=== PATIENT | male | born 1955 | race Caucasian/White ===

== ENCOUNTER 2017-01-06 06:29 | Day surgery (SDC) | payer OTHER ==
[~2017-01-06] VITALS: Ht 177.8 cm; Wt 108.7 kg
[~2017-01-06 06:29] MED LIST: ASPI81TA82 PO; CHOL1CAP6 PO; CIAL5TAB PO; DEXTLIQ PO; ROSU40 PO
[2017-01-06] MEDS ORDERED: NS 1000P @30 MLS/HR (KVO) IV SCH (06:45)
[2017-01-06] MEDS ORDERED: AMLO5TAB2 PO (06:59)
[2017-01-06] MEDS ORDERED: VITA10002 PO (06:59)
[2017-01-06] MEDS ORDERED: OMEGCAP PO (06:59)
[2017-01-06] MEDS ORDERED: ERGO2000 PO (06:59)
[2017-01-06] MEDS ORDERED: CIAL20TA PO (06:59)
[2017-01-06] MEDS ORDERED: LACTCAP8 PO (06:59)
[2017-01-06 07:29] VITALS: BP 165/108; PULSE 66; RESP 18; TEMP 97.9; O2SAT 97
[2017-01-06] MEDS ORDERED: HEPARIN-NS/PF INJ 500 ML ONE (08:42)
[2017-01-06] MEDS ORDERED: NITROGLYCERIN INJ 5 ML ONE (08:42)
[2017-01-06] MEDS ORDERED: MIDAZOLAM HCL 2 MG/2 ML VIAL ONE (08:43)
[2017-01-06] MEDS ORDERED: HEPARIN SODIUM - IV 10,000 UNITS/10 ML VIAL ONE (08:43)
[2017-01-06] MEDS ORDERED: MISC INFORMATION XX ONE (09:15)
--- NOTE | 2017-01-06 09:18 | CATHPROC ---
[employer] HIS Report Study Information Study Number Admission Scheduled Start Study Start [id number] Jan 06 2017 6:29AM 01/06/2017 Jan 06 2017 8:29AM [place] [facility] Cardiac Catheterization Admit Source Facility Department Other [facility] - Demurrage Clerk Physician and Clinical Staff Initial Anthony Burch Florist Manager Alessandro Varela,RN Recorder Bruce Wagner,RT(R) Scrub Giancarlo Haines RCIS(BS) Procedures Performed Procedure Location (Site) Vessel Name Coronary Angiograms LCA Left Coronary Coronary Angiograms RCA Right Coronary Equipment Time Finance Business Partner Description Size Mfg Part Number Used/Scraped TRANSDUCER, TRUWAVE [id number] 08:55 [employer]OTTON PIERSON * Used W/STOCKCOCK *[id number] *[id number] [id number] *[id number] PIGTAIL ANG. 145 INFINITI 534-652S CATHETER *[id number] 08:55 [employer] INDUSTRIES PACK, CCL CUSTOM * Used *[id number] 08:55 [employer] SUPPORT, ARTERIAL ADULT 61068 Used [id number] 08:55 [employer] PACER PEN, SKIN DUAL W/ RULER * Used *[id number] BAND, RADIAL COMPRESSION TR [id number] 09:11 [email or web address] [email or web address] 29CM Used LARGE 29 *[id number] SHEATH, FR6 RADIAL PRELUDE 08:55 [employer] FR 6 [id number] Used EASE 11CM [id number] 08:55 [employer] WIRE, EXCHANGE 260CM 3MMJ 260CM Used *[id number] 08:55 [employer] OMNIPAQUE, 350 MG, 150ML 150ML [id number] Used [id number] 08:55 [employer],WARM AIR CCL * Used *[id number] History: Allergies Allergy Reaction No Known Allergies Codeine Toprol Xl History: Risk Factors Family History of Hypertension Dyslipidemia Previous NC Previous Heart Failure Premature CAD Yes No No No No Prior Valve Prior PCI Prior CABG Surgery No No No Cerebrovascular Peripheral Artery Chronic Lung On Dialysis Diabetes Disease Disease Disease No No No No No History: Stress Tests Stress or Imaging Studies Performed Yes Standard Exercise Stress Test No Stress Echo No Stress Test SPECT Stress Test SPECT Result Stress Test SPECT Ischemia Risk/Extent Yes Positive Intermediate Stress Test CMR Yes Cardiac CTA Coronary Calcium Score No No History: Other Current Smoker No Labs Hgb (g/dl) Hct (%) RBC (MIL/MM3) WBC (l/cumm) Platelets (thousands) 11.60-17.00 35.00-51.00 4.00-5.90 4.00-11.00 150.00-450.00 13.4 39.6 4.2 5.9 264 Glucose (mg/dl) BUN (mg/dl) Creatinine (mg/dl) BUN:Creatinine (1:x) 74.00-106.00 7.00-18.00 0.50-1.30 10.00-20.00 86 16 1.0 16 Na (meq/l) K (meq/l) 136.00-145.00 3.50-5.10 141 4.4 PT (sec) INR (PTT:PT) 9.80-11.60 0.90-1.10 9.7 1 CPK-MB (ng/ML) 0.50-3.60 Not Drawn Medication Medication Total Dose (Bolus/Oral) Medication Total Dosage/Unit 1% XYLOCAINE 5 mL FENTANYL 50 mcg HEPARIN 5000 units NTG (IC) 200 mcg VERSED 2 mg Medications (Bolus/Oral) Medication Time Given Dosage/Unit Administered By Reason VERSED 01/06/2017 8:52:59 AM 2 mg Alessandro Varela 2 mg VERSED given in lab by Alessandro Varela RN in Left Antecubital via Peripheral IV. Ordered by Anthony Mixon. FENTANYL 01/06/2017 8:53:23 AM 50 mcg Alessandro Varela 50 mcg FENTANYL given in lab by Alessandro Varela RN in Left Antecubital via Peripheral IV. Ordered by Anthony Anderson. 1% XYLOCAINE 01/06/2017 8:53:36 AM 5 mL Anthony Mixon Patient arrived on 5 mL 1% XYLOCAINE given by Anthony Mixon in Right Radial via Subcutaneous. Ordere d by Anthony Mixon. NTG (IC) 01/06/2017 8:56:11 AM 200 mcg Anthony Mixon 200 mcg NTG (IC) given in lab by Anthony Mixon in Right Radial via Intra-arterial. Ordered by Anthony Mixon. HEPARIN 01/06/2017 8:56:45 AM 5000 units Alessandro Varela 5000 units HEPARIN given in lab by Alessandro Varela RN in Left Antecubital via Peripheral IV. Ordered b y Anthony Mixon. Medication (Drip) Medication Time Given Dosage/Unit Concentration/Unit Diluent (ml) Solution IV Solutions 01/06/2017 8:45:41 AM 0 mL (IV) 500 NaCl .9 Patient arrived on IV Solutions given by Anthony Mixon in Left Antecubital via Peripheral IV. Pump/D rip Flow = 20 ml/hr using NaCl .9. Ordered by Anthony Mixon. Initial Case Assessment Cardiovascular HR Rhythm NIBP Chest Pain 55 sr 185/109 0 Edema Present Skin color Skin None Normal Warm Dry Circulatory - Right Pulses Dorsalis Pedis Femoral Radial 2 2 2 Scale (0,1,2,3,4,d) Scale (0,1,2,3,4,d) Neurological State Oriented to time-place- Alert Moves all extremities person Respiration - General Respiration Rate SpO2 (%) O2 (lpm) (B/min) 18 98 0 Final Case Assessment Cardiovascular HR Rhythm NIBP Chest Pain 80 sr 126/95 0 Edema Present Skin color Skin None Normal Warm Dry Circulatory - Right Pulses Dorsalis Pedis Femoral Radial 2 2 2 Scale (0,1,2,3,4,d) Scale (0,1,2,3,4,d) Neurological State Oriented to time-place- Alert Moves all extremities person Respiration - General Respiration Rate SpO2 (%) O2 (lpm) (B/min) 18 96 0 Chronological Log Time Study Chronological Log 8:35:24 Patient arrived via Bed. Positive Allens test performed by Alessandro Varela. 8:35:26 Patient Name, D.O.B, / Armband Verified By R.N. 8:35:28 Consent signed by the physician and the patient and verified by the Demurrage Clerk staff. 8:35:30 Pre-op and post- op instructions given; patient acknowledges understanding of instructions. 8:35:53 Verbal Stimulation=2 Physical Stimulation=2 Airway=2 Respiration=2 TOTAL=8. (0=absent, 1=sanchez ited, 2=present) 8:36:03 Presedation assessment performed by Demurrage Clerk RN. 8:36:05 Patient has been NPO for More than 6Hrs. Vitals capture started with the following parameters, Patient=Adult, Interval=5 min, Initial Pre eerfv=080 mmHg, 8:42:43 Deflation Rate=5 mmHg 8:43:58 HR=57 bpm, NWOI=071/109 mmhg, PdL1=607.0 %, Resp=9 B/min, Lambert=2 8:45:06 Skin Breakdown-noted is ant bites in bilateral feet. 8:45:22 Patient Warmer Placed on the Table. 8:45:25 A # 20 IV was noted in the Antecubital (left). Grade = 0 Patient arrived on IV Solutions given by Anthony Mixon in Left Antecubital via Peripheral IV. P ump/Drip Flow = 20 8:45:41 ml/hr using NaCl .9. Ordered by Anthony Mixon. 8:46:01 History and physical on the chart or being dictated. 8:46:04 Reference ECG taken Assessment: Initial Case, HR=55 BPM, Rhythm=sr, LIZB=365/109 mmhg, Chest Pain=0, Edema=None, Col or=Normal, Skin = Warm, Dry 8:46:06 Right Pulses: Reza Ped=2, Femoral=2, Radial=2 Neurological: State=Alert, Ox3, DIALLO Respiration: Resp=18 B/min, SpO2=98 %, O2=0 lpm 8:46:57 Right groin prepped and right radial with 2% chlorhexidine, and with a 3 min. waiting time. 8:48:30 HR=82 bpm, RHFH=363/106 mmhg, SpO2=99.0 %, Resp=11 B/min, Lambert=2 8:51:36 MD arrived. Time Out. Correct patient, correct procedure,correct physician, ,power injector not loaded with contrast with surgical 8:52:21 team present. Time Out Concurred by MD, individual staff and RESEARCH TECH in procedure. Not loaded at th is time. 8:52:33 Pressure channel 1 zeroed. 8:52:47 Presedation re-assessment performed by Demurrage Clerk RN. 8:52:48 Case Start 8:52:50 Verbal Stimulation=2 Physical Stimulation=2 Airway=2 Respiration=2 TOTAL=8. (0=absent, 1=sanchez ited, 2=present) 8:52:59 2 mg VERSED given in lab by Alessandro Varela RN in Left Antecubital via Peripheral IV. Ordered by Anthony Mixon. 8:53:23 50 mcg FENTANYL given in lab by Alessandro Varela RN in Left Antecubital via Peripheral IV. Ord ered by Anthony Mixon. 8:53:31 HR=66 bpm, DERM=816/103 mmhg, SpO2=98.0 %, Resp=10 B/min, Lambert=2 Patient arrived on 5 mL 1% XYLOCAINE given by Anthony Mixon in Right Radial via Subcutaneous. O rdered by Oral, 8:53:36 Anthony. 8:54:51 Access site was Radial Artery. right radial A SHEATH, FR6 RADIAL PRELUDE EASE 11CM FR 6 was advanced into the Radial (right) using the Jolieu bhumi 8:55:22 technique. 8:56:11 200 mcg NTG (IC) given in lab by Anthony Mixon in Right Radial via Intra-arterial. Ordered by Anthony Mixon. 8:56:45 5000 units HEPARIN given in lab by Alessandro Varela, RN in Left Antecubital via Peripheral IV. Ordered by Anthony Mixon. A JR 5.0 INFINITI CATHETER FR 6 was advanced over a wire. OMNIPAQUE, 350 MG, 150ML 150ML was use d for 8:57:13 injections. 8:58:26 HR=67 bpm, BGKV=950/97 mmhg, SpO2=93.0 %, Resp=13 B/min, Lambert=2 Recorded Pressure: Ao, HR=66, Condition=Condition 1 8:58:28 (Aorta) Ao 143/84/114 8:58:32 The RCA was injected and visualized at various angles. OMNIPAQUE, 350 MG, 150ML 150ML used. After removing the current catheter a JL 3.5 INFINITI CATHETER FR 6 was advanced over a WIRE, EX CHANGE 260CM 8:59:20 3MMJ 260CM. 9:01:25 The LCA was injected and visualized at various angles. OMNIPAQUE, 350 MG, 150ML 150ML used. 9:02:53 Catheter was removed 9:03:23 HR=72 bpm, ZRTS=797/99 mmhg, SpO2=92.0 %, Resp=10 B/min, Lambert=2 9:05:03 Catheter was removed 9:08:12 HR=58 bpm, OUBU=249/95 mmhg, Resp=11 B/min, Lambert=2 9:08:35 Vitals capture stopped. Assessment: Final Case, HR=80 BPM, Rhythm=sr, CWXW=793/95 mmhg, Chest Pain=0, Edema=None, Hitchcock r=Normal, Skin = Warm, Dry 9:09:58 Right Pulses: Reza Ped=2, Femoral=2, Radial=2 Neurological: State=Alert, Ox3, DIALLO Respiration: Resp=18 B/min, SpO2=96 %, O2=0 lpm 9:10:32 Catheter(s) removed without difficulty 9:10:34 Case End 9:10:36 No case complications noted. Radial Compression Device Used. 12 mLs of air placed in BAND, RADIAL COMPRESSION TR LARGE 29 2 9CM. Affected 9:10:37 hand 93 % O2 saturation. 9:11:06 Cine recording checked. 9:11:14 Bedside Report will be given. End Study - Contrast Media Used In Study Contrast Total Opened (mL) Total Used (mL) Total Wasted (mL) Omnipaque 70 70 0 End Study - Maximum Contrast Load Max Contrast Load (mL) 540.0 End Study - Radiation Exposure Fluoro Time (minutes) 1.8 End Study - Patient Disposition Complications Transferred To No Telemetry Bed
[2017-01-06] MEDS ORDERED: IOHEXOL 350 MG/ML 100 ML BTL (for Cath Lab) OTHER ONE (10:20)
--- NOTE | 2017-01-19 14:31 | MA ---
cc: NABEEL ARANDA DATE: 01/06/2017 DATE OF : 1955 PROCEDURE PERFORMED 1. Fluoroscopy with interpretation. 2. Coronary angiography. METHOD Risks, benefits, alternatives were discussed with the patient. The patient understood and consented to the procedure. PROCEDURE The patient was brought to the cardiac catheterization lab, placed on the catheterization table. Right wrist was prepped and draped in sterile fashion. Right wrist was anesthetized with 2% lidocaine. The right radial artery was cannulated. A 6-Kinyarwanda 7 cm sheath was placed without difficulty. CORONARY ANGIOGRAPHY 1. Left main coronary is angiographically normal. 2. Left anterior descending coronary is angiographically normal. 3. Left circumflex is angiographically normal and gives rise to ramus intermedius branch. 4. The right coronary is a dominant vessel giving rise to the posterior descending branch and is angiographically normal. CONCLUSION Angiographically normal coronary arteries. MD TONY Burleson/BRYAN /1:42 PM /2:14 PM
== END 2017-01-06 12:03 | disposition home or self-care (01) ==
LOC: HDOC 06:29 → HDIC 06:30 → HDOC 12:03
PROVIDERS: ATTEND Internal Medicine
DX: I20.9 Angina pectoris, unspecified (principal); R06.02 Shortness of breath; R94.39 Abnormal result of other cardiovascular function study
CPT/HCPCS: 86850; 86900; 86901; 93454; C1769; C1893; J1644; J2250; J3010; Q9967